=== PATIENT | male | born 1970 | race Caucasian/White ===

== ENCOUNTER → 2017-04-16 11:05 | Outpatient (CLI) | payer OTHER ==
[~2017-04-16] VITALS: Ht 152.4 cm; Wt 84.4 kg
[~2017-04-16 11:05] MED LIST: ALLEGRA ALLERG180 MG PO; FLONASE16 GM NS; GILTUSS TR TAB1 EACH PO; ZITHROMAX200 MG PO
== END | disposition home or self-care (01) ==
LOC: PPHC 11:05
DX: Z00.00 Encounter for general adult medical examination without abnormal findings (principal)

== ENCOUNTER → 2017-04-25 11:07 | Outpatient (CLI) | payer OTHER ==
[~2017-04-25] VITALS: Ht 152.4 cm; Wt 83.5 kg
== END | disposition home or self-care (01) ==
LOC: PPHC 11:07
DX: Z00.00 Encounter for general adult medical examination without abnormal findings (principal)

== ENCOUNTER 2021-08-05 07:21 | Emergency (ER) | payer OTHER ==
[~2021-08-05] VITALS: Ht 175.3 cm; Wt 85.7 kg
[2021-08-05] MEDS ORDERED: TRAVATAN Z5 ML (07:36)
[2021-08-05] MEDS ORDERED: [UNRECOGNIZED DRUG - OTHER] (07:37)
== END 2021-08-05 10:05 ==
LOC: ER 07:21
DX: B34.9 Viral infection, unspecified (principal)

== ENCOUNTER 2022-10-16 13:36 | Emergency (ER) | payer OTHER ==
[~2022-10-16] VITALS: Ht 172.7 cm; Wt 83.9 kg
[~2022-10-16 13:36] MED LIST changes: +TRAVATAN Z5 ML; +[UNRECOGNIZED DRUG - OTHER]
[2022-10-16] MEDS ORDERED: INTESTINEX680 M1 PO (15:25)
[2022-10-16] MEDS ORDERED: PEPCID AC20 MG PO (15:25)
[2022-10-16] MEDS ORDERED: DICY20TA PO (15:25)
== END 2022-10-16 15:36 | disposition home or self-care (01) ==
LOC: ER 13:36
DX: K52.89 Other specified noninfective gastroenteritis and colitis (principal)

== ENCOUNTER 2023-01-22 07:07 | Outpatient (CLI) | payer OTHER ==
[~2023-01-22 07:07] MED LIST changes: +DICY20TA PO; +INTESTINEX680 M1 PO; +PEPCID AC20 MG PO
== END 2023-01-22 08:05 | disposition home or self-care (01) ==
LOC: MRI 07:07
DX: I72.9 Aneurysm of unspecified site (principal); I65.1 Occlusion and stenosis of basilar artery; I65.09 Occlusion and stenosis of unspecified vertebral artery; I65.29 Occlusion and stenosis of unspecified carotid artery; Q28.2 Arteriovenous malformation of cerebral vessels
CPT/HCPCS: 70544; 70553

== ENCOUNTER 2023-06-23 12:06 | Emergency (ER) | payer OTHER ==
[~2023-06-23] VITALS: Ht 175.3 cm; Wt 83.5 kg
[2023-06-23 16:33] LABS: PH,URINE 5.5 (5.0-8.0); URINE APPEARANCE Clear; URINE BILIRRUBIN Negative (NEGATIVE); URINE BLOOD Negative; URINE COLOR Yellow; URINE GLUCOSE Negative (NEGATIVE); URINE LEUKOCYTE Negative; URINE NITRATE Negative; URINE PROTEIN Negative (NEGATIVE); URINE UROBILINOGEN 0.2 E.U./dl
[2023-06-23 16:36] LABS: URINE BACTERIA 8.8 uL (0.0-1933)
[2023-06-23 16:41] LABS: HEMATOCRIT 42.1 % (39.0-48.0); HEMOGLOBIN 14.2 g/dL (13-16.00); MEAN CELL VOLUME 79.6 fL (80.0-100.00); MEAN CORPUSCULAR HEMOGLOBIN 26.8 pg (27.00-32.0); MEAN CORPUSCULAR HGB CONC 33.7 g/dl (32.0-36.0); PLATELET COUNT 260 K/uL (150-450); RED BLOOD COUNT 5.29 M/uL (4.00-6.00); RED CELL DISTRIBUTION WIDTH 14.3 % (11.5-14.5)
[2023-06-23 16:43] LABS: CALCIUM 9.3 mg/dL (8.5-10.1); CREATININE SERUM 0.76 mg/dL (0.70-1.30); GFR 107.29; POTASSIUM 4.06 mEq/L (3.5-5.1)
[2023-06-23 16:46] LABS: URINE EPITHELIAL CELLS 0.4 uL (0.0-38.8); URINE RBC 0.4 uL (0.0-20.8); URINE WBC 0.7 uL (0.0-23.2)
[2023-06-23] MEDS ORDERED: CIPRO500 MG PO (17:56)
[2023-06-23] MEDS ORDERED: METRONIDAZOLE500 MG PO (17:56)
[2023-06-23] MEDS ORDERED: INTESTINEX680 M1 PO (17:56)
[2023-06-23] MEDS ORDERED: PEPCID AC20 MG PO (17:56)
[2023-06-23] MEDS ORDERED: CIPROFLOXACIN IN 5 % DEXTROSE 400 MG/200 ML PIGGYBAG IV ONE (18:00)
[2023-06-23] MEDS ORDERED: METRONIDAZOLE/SODIUM CHLORIDE 500 MG/100 ML PIGGYBACK IV ONE (18:00)
== END 2023-06-23 20:30 | disposition home or self-care (01) ==
LOC: ER 12:07
PROVIDERS: Nurse Practitioner Family
DX: R10.32 Left lower quadrant pain (principal); H40.89 Other specified glaucoma; K57.32 Diverticulitis of large intestine without perforation or abscess without bleeding

== ENCOUNTER 2023-07-02 09:45 | Outpatient (CLI) | payer OTHER ==
[~2023-07-02 09:45] MED LIST changes: +CIPRO500 MG PO; +METRONIDAZOLE500 MG PO
== END 2023-07-02 09:46 | disposition home or self-care (01) ==
LOC: NUCLEAR 09:45
PROVIDERS: ATTEND Internal Medicine Gastroenterology
DX: K81.1 Chronic cholecystitis (principal)

== ENCOUNTER 2025-03-02 07:52 | Outpatient (CLI) | payer OTHER | END 2025-03-02 08:01 | disposition home or self-care (01) | LOC: SONOGRAMA 07:52 | PROVIDERS: ATTEND Urology | DX: N40.0 Benign prostatic hyperplasia without lower urinary tract symptoms (principal); R31.1 Benign essential microscopic hematuria ==